=== PATIENT | female | born 1985 | race Caucasian/White ===

== ENCOUNTER 2018-08-06 16:04 | Emergency (ER) | payer MEDICAID ==
[~2018-08-06] VITALS: Ht 167.6 cm; Wt 77.3 kg
[2018-08-06 16:09] VITALS: BP 120/86
--- NOTE | 2018-08-06 16:14 | NUR ---
CONTRACTIONS STARTING [id number] AGAIN [id number] WHILE IN TRIAGE
--- NOTE | 2018-08-06 17:02 | NUR ---
KALIN RN AT [facility] CALLED WITH REPORT FOR WITH [facility] OF 08/12/18. PT IS LEAKING AMNIOTIC FLUID SINCE EARLY THIS AM, STATES THAT SHE HAS HAD CONTRACTIONS FOR APPROX 2 WKS AND THINKS SHE LOST HER MUCUS PLUG. PH OF LEAKING FLUID WAS 7.23
== END 2018-08-06 17:16 | disposition short-term general hospital (02) ==
LOC: ER 16:05
DX: O75.82 Onset (spontaneous) of labor after 37 completed weeks of gestation but before 39 completed weeks gestation, with delivery by (planned) cesarean section (principal); Z3A.39 39 weeks gestation of pregnancy; Z98.890 Other specified postprocedural states
CPT/HCPCS: 99291